=== PATIENT | male | born 1950 | race Caucasian/White ===

== ENCOUNTER 2018-12-01 10:04 | Outpatient (CLI) | payer MEDICARE, MEDICAID ==
--- NOTE | 2018-12-01 11:35 | CT ---
CT PULMONARY LUNG SCAN: HISTORY: Current smoker with a 45+ year history of 10 to 20 cigarettes a day. FINDINGS: The lungs are clear of any infiltrative process. There is a moderate left pleural effusion of uncerta in etiology. There are no pulmonary nodules identified. There are calcified right hilar lymph nodes s een and a densely calcified granuloma in the right middle lobe. No significant mediastinal or axillar y adenopathy. The visualized liver parenchyma shows no focal findings. IMPRESSION: 1. Moderate left pleural effusion of uncertain etiology. 2. Lung-RADS category 1 - negative. Annual followup is recommended. POS: [facility]
== END 2018-12-01 10:05 | disposition home or self-care (01) ==
LOC: CT 10:04
PROVIDERS: ATTEND Family Medicine
DX: F17.210 Nicotine dependence, cigarettes, uncomplicated (principal); J90 Pleural effusion, not elsewhere classified
CPT/HCPCS: G0297

== ENCOUNTER 2018-12-07 09:15 | Outpatient (CLI) | payer MEDICARE, MEDICAID ==
--- NOTE | 2018-12-07 09:48 | ULT ---
Abdominal aortic sonogram with duplex evaluation HISTORY: Family history of cardiovascular disease. Tobacco abuse. FINDINGS: Good color and spectral Doppler flow within the abdominal aorta and iliac arteries. Proxima l abdominal aorta measures up to 2.8 cm. Mid abdominal aorta 2.3 cm. Distal abdominal aorta 2.2 cm. Right common iliac artery 1.1 cm. Left common iliac artery 1.3 cm. No fluid around the abdominal aorta. 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 No evidence of aneurysm.
== END 2018-12-07 09:16 | disposition home or self-care (01) ==
LOC: ULT 09:15
PROVIDERS: ATTEND Family Medicine
DX: Z13.6 Encounter for screening for cardiovascular disorders (principal); I77.811 Abdominal aortic ectasia
CPT/HCPCS: 76775

== ENCOUNTER 2018-12-17 11:59 | Emergency (ER) | payer MEDICARE, MEDICAID | END 2018-12-17 14:20 | disposition left against medical advice (07) | LOC: ERS 11:59 | DX: H54.61 Unqualified visual loss, right eye, normal vision left eye (principal); F17.210 Nicotine dependence, cigarettes, uncomplicated; I10 Essential (primary) hypertension; Z71.6 Tobacco abuse counseling; Z79.899 Other long term (current) drug therapy | CPT/HCPCS: 99406 ==

== ENCOUNTER 2021-11-12 10:50 | Outpatient (CLI) | payer MEDICARE, MEDICAID | END 2021-11-12 10:51 | disposition home or self-care (01) | LOC: BICCT 10:50 | PROVIDERS: ATTEND Family Medicine | DX: Z12.2 Encounter for screening for malignant neoplasm of respiratory organs (principal); F17.210 Nicotine dependence, cigarettes, uncomplicated | CPT/HCPCS: 71271 ==

== ENCOUNTER 2022-11-13 14:04 | Outpatient (CLI) | payer MEDICARE, MEDICAID | END 2022-11-13 14:05 | disposition home or self-care (01) | LOC: BICCT 14:04 | PROVIDERS: ATTEND Family Medicine | DX: Z12.2 Encounter for screening for malignant neoplasm of respiratory organs (principal); F17.210 Nicotine dependence, cigarettes, uncomplicated | CPT/HCPCS: 71271 ==